=== PATIENT | female | born 1970 | race Caucasian/White ===

== ENCOUNTER 2022-03-18 07:45 | Inpatient (IN) | payer OTHER ==
[~2022-03-18] VITALS: Ht 170.2 cm; Wt 74.8 kg
[2022-03-19] MEDS ORDERED: TOPROL XL25 M1 PO (08:38)
[2022-03-19] MEDS ORDERED: SYNTHROID100 MCG PO (08:38)
[2022-03-20] MEDS ORDERED: MEGESTROL ACETA40 MG (14:44)
[2022-03-20] MEDS ORDERED: NORFLEX100MG (14:44)
[2022-03-20] MEDS ORDERED: DICLOFENAC SODI75 MG (14:44)
[2022-03-20] MEDS ORDERED: BUSPIRONE HCL10 MG (14:45)
[2022-03-20] MEDS ORDERED: FAMOTIDINE40 MG (14:45)
[2022-03-20] MEDS ORDERED: FLONASE16 GM (14:45)
[2022-03-20] MEDS ORDERED: FUSION PLUS CA1 EACH (14:45)
== END 2022-03-23 13:23 | disposition home or self-care (01) | DRG 743 ==
LOC: OB/GYN 03-20 08:08 → O/R 03-20 08:08 → SURG 03-20 11:15 → OB/GYN 03-20 15:12
PROVIDERS: ADMIT Specialist; ATTEND Specialist
PROC: 0UT70ZZ Resection of Bilateral Fallopian Tubes, Open Approach (ICD-10-PCS; 2022-03-20)
PROC: 0UT20ZZ Resection of Bilateral Ovaries, Open Approach (ICD-10-PCS; 2022-03-20)
PROC: 0UT90ZZ Resection of Uterus, Open Approach (ICD-10-PCS; principal; 2022-03-20 11:15)
DX: D25.1 Intramural leiomyoma of uterus (principal); D25.0 Submucous leiomyoma of uterus; D25.2 Subserosal leiomyoma of uterus; N80.0 Endometriosis of uterus; N84.1 Polyp of cervix uteri; N73.6 Female pelvic peritoneal adhesions (postinfective); N83.291 Other ovarian cyst, right side; N83.292 Other ovarian cyst, left side; Z20.822 Contact with and (suspected) exposure to COVID-19